=== PATIENT | male | born 1955 | race Caucasian/White ===

== ENCOUNTER 2018-10-13 08:38 | Day surgery (SDC) | payer BC, OTHER ==
[~2018-10-13] VITALS: Ht 182.9 cm; Wt 76.7 kg
[~2018-10-13 08:38] MED LIST: AMLO5CAP2 PO; ASPI325T25 PO; ATOR1TAB19 PO; NS 1,000 ML IV ONE; PANT40TA3 PO; VITA100067 PO; VITA500T PO
[2018-10-13] MEDS ORDERED: PROPOFOL 200 MG/20 ML VIAL As Ordered ONE ×2 (09:05→09:54)
[2018-10-13] MEDS ORDERED: LIDOCAINE 2% INJ 100 MG/5 ML SDV (FOR ANES.) As Ordered ONE (09:06)
--- NOTE | 2018-10-13 10:00 | ROOR ---
Patient Name: Wm Russell Procedure Date: 10/13/2018 9:41 AM Date of : 1955 Age: 63 Room: [facility] Gender: Male Note Status: Finalized Procedure: Colonoscopy Indications: Screening for colorectal malignant neoplasm Providers: Jhon Palacios Jr, MD Referring MD: DADA DORSEY Requesting Provider: Medicines: Propofol per Anesthesia Complications: No immediate complications. Procedure: Pre-Anesthesia Assessment: - Prior to the procedure, a History and Physical was performed, and patient medications and allergies were reviewed. The patient is competent. The risks and benefits of the procedure and the sedation options and risks were discussed with the patient. All questions were answered and informed consent was obtained. Patient identification and proposed procedure were verified by the physician and the nurse in the pre-procedure area and in the procedure room. Mental Status Examination: alert and oriented. Airway Examination: normal oropharyngeal airway and neck mobility. Respiratory Examination: clear to auscultation. CV Examination: normal. ASA Grade Assessment: II - A patient with mild systemic disease. After reviewing the risks and benefits, the patient was deemed in satisfactory condition to undergo the procedure. The anesthesia plan was to use moderate sedation / analgesia (conscious sedation). Immediately prior to administration of medications, the patient was re-assessed for adequacy to receive sedatives. The heart rate, respiratory rate, oxygen saturations, blood pressure, adequacy of pulmonary ventilation, and response to care were monitored throughout the procedure. The physical status of the patient was re-assessed after the procedure. The Colonoscope was introduced through the anus and advanced to the cecum, identified by appendiceal orifice and ileocecal valve. The colonoscopy was performed without difficulty. The patient tolerated the procedure well. The quality of the bowel preparation was adequate. Findings: The rectum, descending colon, transverse colon, ascending colon, cecum, appendiceal orifice and ileocecal valve appeared normal. Multiple small and large-mouthed diverticula were found in the sigmoid colon. Impression: - The rectum, descending colon, transverse colon, ascending colon, cecum, appendiceal orifice and ileocecal valve are normal. - Diverticulosis in the sigmoid colon. - No specimens collected. Recommendation: - Discharge patient to home (ambulatory). - Repeat colonoscopy in 10 years for screening purposes. Jhon Palacios MD Jhon Palacios Jr, MD 10/13/2018 9:59:25 AM This report has been signed electronically. Number of Addenda: 0 Note Initiated On: 10/13/2018 9:41 AM Estimated Blood Loss: Estimated blood loss: none.
[2018-10-13 10:20] VITALS: BP 110/82
== END 2018-10-13 10:23 | disposition home or self-care (01) ==
LOC: M OPP 08:38
PROVIDERS: ATTEND Surgery
DX: Z12.11 Encounter for screening for malignant neoplasm of colon (principal); Z79.82 Long term (current) use of aspirin; Z79.899 Other long term (current) drug therapy; F17.210 Nicotine dependence, cigarettes, uncomplicated

== ENCOUNTER → 2020-06-14 | Outpatient (REF) | payer BC, OTHER ==
[~2020-06-14] MED LIST changes: -AMLO5CAP2 PO; +AMLO5CAP44 PO; +ASPI-255 PO; -ASPI325T25 PO; -NS 1,000 ML IV ONE; +PANT40TA29 PO; -PANT40TA3 PO; +VITA-243 PO; -VITA500T PO
== END ==
LOC: M LAB REF 09:32
PROVIDERS: ATTEND Dermatology
DX: C44.509 Unspecified malignant neoplasm of skin of other part of trunk (principal)